=== PATIENT | female | born 1985 | race Caucasian/White ===

== ENCOUNTER → 2017-03-10 | Outpatient (CLI) | payer OTHER | END | disposition home or self-care (01) | LOC: C.PAPS 18:23 | PROVIDERS: ATTEND Physician Assistant | DX: Z01.419 Encounter for gynecological examination (general) (routine) without abnormal findings (principal) ==

== ENCOUNTER → 2017-04-07 | Outpatient (CLI) | payer OTHER ==
--- NOTE | 2017-04-08 07:48 | MAMMOGRAPHY REPORT ---
UNILATERAL LEFT DIGITAL DIAGNOSTIC MAMMOGRAM TOMOSYNTHESIS WITH CAD AND TARGETED LEFT ULTRASOUND: 02/2017 CLINICAL HISTORY: 31-year-old woman presents with left breast pain for approximately 7 months that is occurring daily. Sometimes the quality of the pain is burning and stabbing, other times dull and ac hasmukh. No palpable lumps. No skin erythema or nipple discharge. Patient has a history of prior left nipple piercing. TECHNIQUE: Left breast tomosynthesis in addition to standard 2D mammography was performed. Current st udy was also evaluated with a Computer Aided Detection (CAD) system. COMPARISON: No prior exams were available for comparison. BREAST COMPOSITION: The tissue of the left breast is extremely dense, which lowers the sensitivity o f mammography. FINDINGS: There are 2 benign coarse calcifications in the anterior subareolar left breast. No suspic ious mass, asymmetry, architectural distortion or suspicious microcalcifications is seen. Targeted ultrasound was performed throughout the left breast in the areas of pain described by the pa tient, including behind the nipple, extending laterally into the 3:00 axis and throughout the lower o uter quadrant of the left breast. Sonographically normal tissue is seen without a discrete solid or cystic mass. No focal skin thickening or drainable fluid collection identified. IMPRESSION: ACR BI-RADS CATEGORY 2: BENIGN, TARGETED ULTRASOUND ACR BI-RADS CATEGORY 2: BENIGN There is no mammographic or targeted sonographic evidence of malignancy in the left breast. No suspi cious mammographic or targeted sonographic abnormality identified to explain the nonfocal left mastal tracey. Therefore, continued clinical follow-up is recommended. Conservative management with mineral s upplements, NSAIDs and alteration of caffeine intake were discussed with the patient at the time of t he exam. Approximately 10% of breast cancers are not detected with mammography. A negative mammographic report should not delay biopsy if a clinically suggestive mass is present. Marcela Cedeno M.D. ay/:04/07/2017 12:18:35 [employer] Closer: Risa ANDINO)(M), [facility] letter sent: Normal 1/2 BI-RADS Code: ACR BI-RADS Category 2: Benign Ultrasound BI-RADS: ACR BI-RADS Category 2: Benign
== END | disposition home or self-care (01) ==
LOC: C.MAMM 09:57
PROVIDERS: ATTEND Physician Assistant
DX: N64.4 Mastodynia (principal)

== ENCOUNTER → 2017-06-13 | Day surgery (SDC) | payer OTHER ==
[2017-06-02 14:08] LABS: BASO ABS # 0.06 K/uL (0-0.2); EOS % 9.7 %; EOS ABS # 0.57 K/uL (0-0.5); HEMATOCRIT 39.9 % (37-47); HEMOGLOBIN 13.5 g/dL (12.0-16.0); LYMPH % 31.9 %; LYMPH ABS # 1.88 K/uL (1.2-3.4); MEAN CELL VOLUME 95.5 fL (80-100); MEAN CORPUSCULAR HEMOGLOBIN 32.3 pg (25-34); MEAN CORPUSCULAR HGB CONC 33.8 g/dl (32-36); MEAN PLATELET VOLUME 10.9 fL (7.4-10.4); MONO ABS # 0.71 K/uL (0.11-0.59); NEUT % 45.4 %; NEUT ABS # 2.68 K/uL (1.4-6.5); PLATELET COUNT 227 K/uL (130-400); RED CELL DISTRIBUTION WIDTH CV 12.9 % (11.5-14.5); RED CELL DISTRIBUTION WIDTH SD 44.3 fL (36.4-46.3)
[2017-06-02 14:20] LABS: PTT PATIENT 25.7 SECONDS (21.0-31.0)
[2017-06-02 14:42] LABS: BLOOD UREA NITROGEN 11 mg/dl (7-18); CALCIUM 8.9 mg/dl (8.5-10.1); CARBON DIOXIDE 28 mmol/L (21-32); CREATININE 0.78 mg/dl (0.60-1.20); GLUCOSE 79 mg/dl (70-99); POTASSIUM 4.2 mmol/L (3.5-5.1); SODIUM 137 mmol/L (136-145)
[2017-06-03 10:32] VITALS: Ht 165.1 cm; Wt 61.4 kg
[~2017-06-13] VITALS: Ht 165.1 cm; Wt 61.4 kg
[~2017-06-13] MED LIST: ACETAMINOPHEN 325 MG TAB PO PRN; ATROPINE SULFATE 0.1 MG/ML 5ML SYR IV PRN; BUPIVACAINE 0.25% 30 ML VIAL ONE; CEFAZOLIN 2000MG IV PUSH 15 ML IV SCH; EpHEDrine SULFATE INJ 50 MG/ML AMP IV PRN; FENTANYL CITRATE INJ 50 MCG/1 ML 2 ML VIAL IV PRN; FENTANYL CITRATE INJ 50 MCG/1 ML 2 ML VIAL ONE; FEXO1TAB49 PO; HYDROmorphone INJ 1 MG/ML SYR IV PRN; LACTATED RINGER'S 1000ML 1,000 ML IV SCH; LIDOCAINE HCL 2% 2 ML VIAL (20MG/ML) ONE; LIDOCAINE/EPINEPHRINE 1% 20 ML VIAL ONE; LORA0.5T12 PO; METOCLOPRAMIDE HCL INJ 5 MG/ML 2 ML VIAL IV PRN; MIDAZOLAM HCL 1 MG/ML 2ML VIAL ONE; ONDANSETRON INJ 2 MG/ML 2 ML VIAL IV PRN; OXYCODONE/ACETAMINOPHEN 5-325 TAB PO PRN; PROMETHAZINE HCL INJ 12.5 MG in SODIUM CHLORIDE 0.9% 50ML 50 ML IV PRN; PROPOFOL IV EMULSION 10 MG/ML 20 ML VIAL IV ONE; SODIUM CHLORIDE 0.9% 1000ML 1,000 ML IV SCH
--- NOTE | 2017-06-13 09:49 | History & Physical Bridge - [place] ---
H&P Re-Evaluation Bridge Note: I have examined the patient, reviewed the History & Physical and in the interval since the performance of the History & Physical I have noted the following changes of clinical significance: No changes noted
--- NOTE | 2017-06-13 10:42 | [facility] Post Operative Brief Note ---
Immediate Operative Summary Operative Date Jun 13, 2017. Pre-Operative Diagnosis Left Upper Arm Lipoma Post-Operative Diagnosis Same Procedure(s) Performed Left Upper Arm Lipoma Excision Surgeon Dr. Camarillo Quality Improvement Consultant Surgeon(s) Titi Hammond PA-C Estimated Blood Loss 2 mL Findings Consistent with Post-Op Diagnosis Specimens A. Left Upper Arm Lipoma Anesthesia Type MAC Disposition Disposition: Recovery Room / PACU
--- NOTE | 2017-06-13 10:51 | Discharge Instructions ---
Discharge Instructions Date of Service Jun 13, 2017. Admission Reason for Admission: Lipoma Left Upper Arm Discharge Discharge Diagnosis / Problem: lipoma left upper arm Discharge Goals Goal(s): Decrease discomfort, Improve function Activity Recommendations Activity Limitations: as noted below ACTIVITY RECOMMENDATIONS: __Normal activities _x_No bending, lifting or straining __No driving __Driving allowed when you are off pain medications _x_Walking permitted __You should have help at home for ___ days DRESSINGS: __No dressings required __Keep dressings dry/in place until first office visit _x_Remove dressings _on Friday__ and OK to leave dressings off _x_Apply ice _3__ days __Remove dressings and reapply garment __Apply antibiotic ointment (Bacitracin, Neosporin, etc) to wounds 3-4 times/ day for 10 days BATHING: __Keep dressings dry __Sponge bathing permitted _x_Showering permitted on Friday _x_No swimming, hot tubs or soaking in a tub MEDICATIONS: Resume previous medications unless instructed otherwise by your surgeon. _x_Do not use aspirin, Motrin, Advil or Ibuprofen as these may promote bleeding. Please use Tylenol. _x_Prescription(s) provided: pain medication provided at your last office visit OTHER INSTRUCTIONS: __Record drain output 2-3 times per day SPECIAL CARE INSTRUCTIONS: * It is normal to have a mild fever after surgery. If your temperature is higher than 101.5 degrees F, please call the office at [phone]. * Constipation is a typical side effect of pain medication. An over-the- counter stool softener will help relieve this. * Leaking around surgical drains may occur and should not cause concern. Sometimes these drains become clogged. If this happens, remove the bulb and milk the clot out of the tube, then replace the bulb. * Drainage from wounds after liposuction is normal and should be expected. Garments will become soiled. You should protect furniture and bedding. This drainage should mostly subside within 2-3 days. Leave garments in place unless instructed to remove them. * If you have unusual drainage from a wound or are concerned you have an infection or have any questions or concerns, please call the office at [phone]. FOLLOW UP VISIT: If not already scheduled, please call the office, , when you return home after surgery to schedule an appointment to be seen in _14__ days. . Current Hospital Diet Patient's current hospital diet: Discharge Diet Recommended Diet: Regular Diet Procedures Procedures Performed: Left Upper Arm Lipoma Excision Pending Studies Studies pending at discharge: yes List of pending studies: pathology Medical Emergencies . Who to Call and When: Medical Emergencies: If at any time you feel your situation is an emergency, please call 911 immediately. . Non-Emergent Contact Non-Emergency issues call your: Primary Care Provider, Surgeon . "Provider Documentation" section prepared by Lise Hammond. . VTE Core Measure Inpt VTE Proph given/why not?: SCD's [place] Drug Monitoring Program Search Results: no issues identified
[2017-06-13 10:54] VITALS: TEMP 36.6
[2017-06-13 11:14] VITALS: BP 98/61; PULSE 56; O2SAT 100
--- NOTE | 2017-06-13 11:24 | Anesthesia Progress Nt - [facility] ---
Anesthesia Post Op Note Date & Time Jun 13, 2017 at 11:23 Vital Signs Pain Intensity: 0 Vital Signs Past 12 Hours Date Time Temp Pulse Resp B/P (MAP) Pulse Ox O2 Delivery O2 Flow Rate FiO2 06/13/17 11:14 56 16 98/61 (73) 100 Room Air 06/13/17 10:54 36.6 63 16 108/67 (81) 100 Room Air 06/13/17 09:03 36.9 71 22 109/76 (87) 98 Room Air Notes Mental Status: alert / awake / arousable, participated in evaluation Pt Amnestic to Procedure: Yes Nausea / Vomiting: adequately controlled Pain: adequately controlled Airway Patency, RR, SpO2: stable & adequate BP & HR: stable & adequate Hydration State: stable & adequate Anesthetic Complications: no major complications apparent
--- NOTE | 2017-06-13 11:40 | OPERATIVE REPORT ---
DATE OF OPERATION: 06/13/2017 PREOPERATIVE DIAGNOSIS: Left upper arm lipoma. POSTOPERATIVE DIAGNOSIS: Same. PROCEDURE: Excision of left upper arm lipoma. SURGEON: Zaida Camarillo MD SECURITIES ADVISER: Lise Hammond PA-C. ANESTHESIA: Local with sedation. COMPLICATIONS: None. INDICATION FOR THE PROCEDURE: The patient presented to the office with an enlarging left upper extremity lipoma, which was causing discomfort and had desired removal. BRIEF DESCRIPTION OF THE PROCEDURE: The risks, benefits and alternatives of the procedure were explained to the patient who agreed and signed consent. She was identified and marked in the preoperative holding area. She was brought to the operating room where she was positioned supine and placed under sedation without incident. Surgical site was prepped and draped sterilely. A time-out procedure was performed. A mixture of 0.25% Marcaine plain and 1% lidocaine with epinephrine was used to anesthetize the surgical site. A 15-blade scalpel was used to make the linear skin incision along the lines of relaxed skin tension. The incision was deepened using electrocautery. The incision was deepened through underlying subcutaneous fat using a curved hemostat to provide blunt dissection and electrocautery to perform sharp dissection. A well-circumscribed lipoma was identified and its capsule was incised. It was able to be bluntly dissected using finger dissection and removed in its entirety intact through the wound. Hemostasis was achieved with electrocautery. The lipoma measured 4.5 x 4 cm and was noted to be superficial to muscle. The wound was reapproximated using 3-0 PDS dermal sutures and 3-0 Monocryl running subcuticular suture. Dermabond was applied. A dry dressing was placed. The procedure was tolerated well. The patient was awakened and transferred to recovery in satisfactory condition. Lise Hammond was present and scrubbed throughout the entire procedure. I attest to the content of the Intraoperative Record and any orders documented therein. Any exception s are noted below.
== END | disposition home or self-care (01) ==
LOC: X.SURG 08:47
PROVIDERS: ATTEND Plastic Surgery
DX: D17.9 Benign lipomatous neoplasm, unspecified (principal); Z98.890 Other specified postprocedural states; Z98.818 Other dental procedure status